=== PATIENT | female | born 1950 ===

== ENCOUNTER 2018-04-17 10:13 | Emergency (ER) | payer SELFPAY ==
[2018-04-17 10:27] VITALS: BMI 33.8
[2018-04-17 10:30] VITALS: RESP 16; TEMP 98.6
--- NOTE | 2018-04-17 12:31 | C.PDOC ---
History Of Present Illness 68 yo female comes in accompanied by son for evaluation of Right shoulder, B/L knees pain and Right anterior chest wall pain developed for past 4 days after sustained mechanical fall. Pt admits, ' frequent fall, have unsteady gait, dont want to use cane or walker". Pt admits, pain is gradually getting worse over time, localized and worse with movement. Otherwise, pt denies head injury, LOC, syncope, severe headache, dizziness, visual changes, focal deficits, denies anticoagulation therapy, neck pain, CP, SOB, dyspnea, palpitation, abd. pain, N/V, denies deformity, new weakness, sensory or vascular deficits to B?L UEs and lEs. Ambulate to Ed for evaluation w/baseline gait, not in any apparent distress. Time Seen by Provider: 04/17/18 10:37 Chief Complaint (Nursing): Rib Injury History Per: Patient Past Medical History Reviewed: Historical Data, Nursing Documentation, Vital Signs Vital Signs: Last Vital Signs Temp 98.6 F 04/17/18 10:28 Pulse 72 04/17/18 10:28 Resp 16 04/17/18 10:28 BP 115/70 04/17/18 10:28 Pulse Ox 96 04/17/18 10:28 - Medical History PMH: Arthritis, HTN Family History: States: No Known Family Hx - Social History Hx Tobacco Use: No Hx Alcohol Use: No Hx Substance Use: No - Immunization History Hx Tetanus Toxoid Vaccination: No Hx Influenza Vaccination: No Hx Pneumococcal Vaccination: No Review Of Systems Except As Marked, All Systems Reviewed And Found Negative. Constitutional: Negative for: Fever, Chills Eyes: Negative for: Vision Change ENT: Negative for: Ear Discharge, Nose Discharge Cardiovascular: Positive for: Other (chest wall pain). Negative for: Chest Pain, Palpitations, Edema, Light Headedness Respiratory: Negative for: Shortness of Breath Gastrointestinal: Negative for: Nausea, Vomiting Genitourinary: Negative for: Incontinence Musculoskeletal: Positive for: Shoulder Pain. Negative for: Neck Pain, Back Pain Skin: Negative for: Bruising Neurological: Negative for: Weakness, Numbness, Altered Mental Status, Headache, Dizziness Physical Exam - Physical Exam Appears: Well, Non-toxic, No Acute Distress Skin: Normal Color, Warm, Dry, No Rash, No Ecchymosis Head: Atraumatic, Normacephalic Eye(s): bilateral: PERRL Ear(s): Bilateral: Normal Nose: No Flaring, No Discharge, No Deformity, No Tenderness Oral Mucosa: Moist, No Drooling Tongue: Normal Appearing Lips: Normal Appearing Throat: No Drooling Neck: Normal ROM, Trachea Midline, No Midline Cervical Tenderness, No Paracervical Tenderness, No Step Off Deformity, Supple Chest: Symmetrical, No Deformity, Tenderness (mild tenderness over anterior and lateral Right chest wall overlying 4-6 intercostal spaces. No pa), No Ecchymosis, No Subcutaneous Emphysema Cardiovascular: Rhythm Regular, No Murmur, No JVD Respiratory: No Decreased Breath Sounds, No Accessory Muscle Use, No Stridor, No Wheezing Gastrointestinal/Abdominal: Soft, No Tenderness Back: No CVA Tenderness, No Vertebral Tenderness Extremity: Normal ROM, Tenderness (mild over superior aspect Right shoulder and anterior aspect B/l knees), No Deformity, No Swelling Extremity: Bilateral: Atraumatic Neurological/Psych: Oriented x3, Normal Speech, Normal Motor, Normal Sensation, Normal Reflexes ED Course And Treatment O2 Sat by Pulse Oximetry: 96 Pulse Ox Interpretation: Normal - Other Rad Right shoulder X-Ray: Interpreted by Me, Viewed By Me Interpretation: (-) acute fx or dislocation, (+) DJD, mild B/L knees X-Ray: Interpreted by Me, Viewed By Me Interpretation: (-) acute fx or dislocation, (+) mod DJD - CT Scan/US CT chest Other Rad Studies (CT/US): Radiology Report Reviewed CT/US Interpretation: Creator : Lisandra Arce RT,CT. Dictator : Deepika Ortega MD. Bristle Machine Operator : Imaging Engineer : Deepika Ortega MD. Approver2 : Report Date : 04/17/2018 12:02:20. My Comment : . Date of service: 04/17/18. CT chest without IV contrast. Indication: Injury, fall. Technique: Contiguous axial images were obtained through the chest without intravenous contrast enhancement. Sagittal and coronal reconstructions were generated and reviewed. This CT exam was performed using 1 or more of the following dose reduction techniques: Automated exposure control, adjustment of the MAA and/or kV according to patient size, and/or use of iterative reconstruction technique. . Radiation dose (DLP): 552.93 MGy-cm. Comparison: Chest x-ray performed 01/20/18. Findings: Visualized portions of the inferior thyroid gland appear unremarkable. The mediastinal and hilar vascular structures appear within normal limits. The heart appears within normal limits of size. No focal consolidation. No pleural effusion. No pneumothorax. 3 mm right upper lobe pulmonary nodule (series 3, image 39). Small hiatal hernia/distal esophageal wall thickening. Postsurgical gastric changes. 16 mm probable splenule. Remainder of the limited visualized noncontrast upper abdomen appears grossly unremarkable. . Kyphosis. Multilevel degenerative changes. Impression: No acute traumatic pathology identified. 3 mm right upper lobe pulmonary nodule. In the absence of risk factors for lung cancer, no specific imaging follow-up is required. If the patient is a smoker or has other risk factors, follow-up CT at 12 months is recommended to document stability. Additional findings as above Progress Note: On re-evaluation, pt is afebrile, hemodynamicay stable. Non- toxic. Ambulatory in ED with baseline gait. head: AT/NC. Neck: SUpple, (-) midline tenderness. ENT: no acute findings. Lungs: CTA B/L, BS equal B/L, (+) mild tenderness over right anterior chest wall, no deformity or open wound, no skin changes. CVS: (+)S1S2, reg. Abd: Benign. FAROM of B/L UEs and LEs, no ecchymoses noted, no deformity. Neurologicaly intact. CT chest review (-) acute findings c/w injury. Right shoulder and B/L knees xray review (-) acute fx or dislocation, (+) mod DJD. Pt has clinical findings c/w Right sided shoulder sprain, Right side chest wall contusion, B/L knees contusion. s/p mechanical fall. Pt and family advised, ref. to F/u with PMD in 2 -3 days for re-eavl. return to ED if any worsening or new changes. Disposition Counseled Patient/Family Regarding: Studies Performed, Diagnosis, Need For Followup, Rx Given - Disposition Referrals: Norma Judge MD [Medical Doctor] - Disposition: HOME/ ROUTINE Disposition Time: 12:10 Condition: STABLE Additional Instructions: LIght duty Take pain medication as prescribed Follow up with PMD in 2-3 days for re-evaluation. return to ED if any worsening or new changes. Prescriptions: traMADol [Ultram] 50 mg PO TID #7 tab Instructions: Bruised Rib, Shoulder Sprain, Knee Sprain (DC) Forms: [employer] (Scottish) Print Language: ERITREAN - Clinical Impression Clinical Impression: Chest wall contusion, Shoulder contusion, Knee contusion
--- NOTE | 2018-04-17 12:43 | CT ---
Date of service: 04/17/18 CT chest without IV contrast Indication: Injury, fall Technique: Contiguous axial images were obtained through the chest without intravenous contrast enhancement. Sagittal and coronal reconstructions were generated and reviewed. This CT exam was performed using 1 or more of the following dose reduction techniques: Automated exposure control, adjustment of the MAA and/or kV according to patient size, and/or use of iterative reconstruction technique. Radiation dose (DLP): 552.93 MGy-cm. Comparison: Chest x-ray performed 01/20/18 Findings: Visualized portions of the inferior thyroid gland appear unremarkable. The mediastinal and hilar vascular structures appear within normal limits. The heart appears within normal limits of size. No focal consolidation. No pleural effusion. No pneumothorax. 3 mm right upper lobe pulmonary nodule (series 3, image 39). Small hiatal hernia/distal esophageal wall thickening. Postsurgical gastric changes. 16 mm probable splenule. Remainder of the limited visualized noncontrast upper abdomen appears grossly unremarkable. Kyphosis. Multilevel degenerative changes. Impression: No acute traumatic pathology identified. 3 mm right upper lobe pulmonary nodule. In the absence of risk factors for lung cancer, no specific imaging follow-up is required. If the patient is a smoker or has other risk factors, follow-up CT at 12 months is recommended to document stability. Additional findings as above.
[2018-04-17 13:55] VITALS: BP 101/85; PULSE 84; O2SAT 98
--- NOTE | 2018-04-17 17:31 | RAD ---
Date of service: 04/17/2018 PROCEDURE: Bilateral Knee Radiographs. HISTORY: injury COMPARISON: None. FINDINGS: BONES: Joint space narrowing, articular cortical sclerosis and osteophyte development are seen in all 3 joint compartments compatible with advanced tricompartmental osteoarthritis. No fracture or dislocation bilaterally. JOINTS: No subluxation or dislocation bilaterally. SOFT TISSUES: Right Knee: Normal. Left Knee: Normal. JOINT EFFUSION: Right Knee: None. Left Knee: None. OTHER FINDINGS: None. IMPRESSION: Advanced bilateral tricompartmental osteoarthritis. No acute fracture or dislocation.
--- NOTE | 2018-04-17 17:34 | RAD ---
Date of service: 04/17/2018 PROCEDURE: Radiographs of the Right Shoulder HISTORY: injury COMPARISON: No prior. FINDINGS: BONES: No acute fracture or destructive bony lesion identified. JOINTS: Marked degenerative fibrocystic changes seen at the humeral head with the nonaggressive cyst identified in the glenoid process. Degenerative osteophytes are identified at the acromioclavicular and glenohumeral joints. SOFT TISSUES: Normal. OTHER FINDINGS: None. IMPRESSION: No acute fracture or dislocation. Degenerative glenohumeral and acromioclavicular changes are identified as discussed above as well as a nonaggressive cyst at the glenoid process.
== END 2018-04-17 13:54 | disposition home or self-care (01) ==
LOC: C.ER 10:13
DX: S20.211A Contusion of right front wall of thorax, initial encounter (principal); S40.011A Contusion of right shoulder, initial encounter; S80.02XA Contusion of left knee, initial encounter; S80.01XA Contusion of right knee, initial encounter; W19.XXXA Unspecified fall, initial encounter

== ENCOUNTER 2018-04-28 17:11 | Emergency (ER) | payer SELFPAY ==
[2018-04-28 17:11] VITALS: BMI 33.8
[2018-04-28 18:09] VITALS: BP 117/70; PULSE 66; RESP 18; TEMP 98.7; O2SAT 96
--- NOTE | 2018-04-28 19:11 | C.PDOC ---
History Of Present Illness 68 year old female presents to ED sent from the clinic doctor's office for evaluation of a head injury today. Patient reports she went to sit down in a rolling chair and fell backwards striking her head on the ground. No LOC witness, patient has bump on the head. Patient also complains of left wrist pain. Denies other injuries, dizziness, vision changes, nausea, vomiting, numbness, weakness. - HPI Time Seen by Provider: 04/28/18 18:27 Chief Complaint (Nursing): Trauma History Per: Patient History/Exam Limitations: no limitations Onset/Duration Of Symptoms: Hrs Past Medical History Reviewed: Historical Data, Nursing Documentation, Vital Signs Vital Signs: Last Vital Signs Temp 98.7 F 04/28/18 18:06 Pulse 66 04/28/18 18:06 Resp 18 04/28/18 18:06 BP 117/70 04/28/18 18:06 Pulse Ox 96 04/28/18 18:06 - Medical History PMH: Arthritis, HTN Family History: States: Unknown Family Hx - Social History Hx Tobacco Use: No Hx Alcohol Use: No Hx Substance Use: No - Immunization History Hx Tetanus Toxoid Vaccination: No Hx Influenza Vaccination: No Hx Pneumococcal Vaccination: No Review Of Systems Constitutional: Positive for: Other (bump on the head.) Eyes: Negative for: Vision Change Gastrointestinal: Negative for: Nausea, Vomiting Musculoskeletal: Positive for: Hand Pain (left wrist pain.) Neurological: Negative for: Weakness, Numbness, Incoordination, Dizziness Physical Exam - Physical Exam Appears: Non-toxic, No Acute Distress Skin: Warm, Dry Head: Normacephalic, No Laceration, Other (small hematoma to the left posterior scalp.) Eye(s): bilateral: Normal Inspection, EOMI Neck: Normal ROM Chest: Symmetrical Cardiovascular: Rhythm Regular Respiratory: Normal Breath Sounds Extremity: Normal ROM, Tenderness (to the radial aspect of the left wrist. ), Capillary Refill (less than 2 seconds.), No Deformity, Swelling (mild swelling to the left wrist.) Neurological/Psych: Oriented x3, Normal Speech, Normal Motor, Normal Sensation, Normal Reflexes Gait: Steady ED Course And Treatment O2 Sat by Pulse Oximetry: 96 (RA) Pulse Ox Interpretation: Normal - Other Rad X-ray LT Wrist X-Ray: Viewed By Me Interpretation: No fractures. Appeared normal. - CT Scan/US CT Head w/o Contrast Other Rad Studies (CT/US): Read By Radiologist CT/US Interpretation: FINDINGS: BRAIN. No acute intraparenchymal hemorrhage. No mass lesion. No CT evidence for acute territorial infarct. No midline shift or extra-axial collections. VENTRICLES: No hydrocephalus. ORBITS: The orbits are unremarkable. SINUSES AND MASTOIDS: The paranasal sinuses and mastoid air cells are clear. BONES: No fracture. SOFT TISSUES: Unremarkable. IMPRESSION: No acute intracranial abnormality. Progress Note: Ice was applied to the affected area. Sent for x-ray to the left wrist. Sent for CT of the head w/o contrast. Patient stable for discharge home. Medical Decision Making Medical Decision Making: Impression: Accidental fall Plan: * Xray wrist * Head cT * declined any pain medicine Progress: CT head shows no acute finding. Xray negative for fracture. Volar splint applied to wrist for support by Pa. Patient instructed to take analgesic Disposition Counseled Patient/Family Regarding: Studies Performed, Diagnosis, Need For Followup - Disposition Referrals: Norma Judge MD [Medical Doctor] - Disposition: HOME/ ROUTINE Disposition Time: 20:20 Condition: GOOD Additional Instructions: Tu radiografa era normal, sin fracturas. Por favor aplique hielo al priscilla 15 minutos best veces al da. [place] Motrin segn sea necesario para el dolor cada 6 horas, con alimentos que no molesten el estmago. [place] un seguimiento con ortopedia si el dolor persiste aleshia francisco semana. 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 - Scribe Statement The provider has reviewed the documentation as recorded by the Scribe (Jennifer Rosario) All medical record entries made by the Scribe were at my direction and personally dictated by me. I have reviewed the chart and agree that the record accurately reflects my personal performance of the history, physical exam, medical decision making, and the department course for this patient. I have also personally directed, reviewed, and agree with the discharge instructions and disposition.
--- NOTE | 2018-04-29 08:33 | CT ---
Date of service: 04/28/2018 PROCEDURE: CT HEAD WITHOUT CONTRAST. HISTORY: Pain and hematoma. Status post fall. COMPARISON: None available. TECHNIQUE: Axial computed tomography images were obtained through the head/brain without intravenous contrast. Radiation dose: Total exam DLP = 883 mGy-cm. This CT exam was performed using one or more of the following dose reduction techniques: Automated exposure control, adjustment of the mA and/or kV according to patient size, and/or use of iterative reconstruction technique. FINDINGS: HEMORRHAGE: No intracranial hemorrhage. BRAIN: No mass effect or edema. Scattered focal lucencies in the subcortical and periventricular white matter suggestive for chronic microvascular ischemic change. Punctate right caudate head lacunar infarct. Punctate left basal ganglia calcification. VENTRICLES: Unremarkable. No hydrocephalus. CALVARIUM: Unremarkable. PARANASAL SINUSES: Unremarkable as visualized. No significant inflammatory changes. MASTOID AIR CELLS: Unremarkable as visualized. No inflammatory changes. OTHER FINDINGS: None. IMPRESSION: No acute intracranial abnormality. If symptoms persists, consider correlation with MRI. These findings were preliminarily reported at 7:39 p.m. on 04/28/[address] Fabricio Ayala from [facility].
--- NOTE | 2018-04-29 08:38 | RAD ---
Date of service: 04/28/2018 PROCEDURE: Left Wrist Radiographs. HISTORY: PAIN S.P FALL COMPARISON: None. FINDINGS: BONES: Nofracture appreciated JOINTS: First carpal metacarpal mild arthrosis SOFT TISSUES: Normal. OTHER FINDINGS: None. IMPRESSION: No fracture appreciated. Clinical follow-up recommended First carpal metacarpal mild arthrosis
== END 2018-04-28 20:28 | disposition home or self-care (01) ==
LOC: C.ER 17:11
DX: S00.03XA Contusion of scalp, initial encounter (principal); S63.502A Unspecified sprain of left wrist, initial encounter; W07.XXXA Fall from chair, initial encounter; I10 Essential (primary) hypertension